=== PATIENT | female | born 1990 | race Caucasian/White ===

== ENCOUNTER 2021-11-04 18:13 | Inpatient (IN) | payer MEDICAID, OTHER ==
[~2021-11-04] VITALS: Ht 160 cm; Wt 59.4 kg
[2021-11-04] MEDS ORDERED: LORazepam 2 MG TABLET PO ONE (19:30)
[2021-11-04] MEDS ORDERED: QUEtiapine FUMARATE 100 MG TABLET PO ONE (19:30)
[2021-11-04 19:32] LABS: BASOPHILS % (AUTO) 0.8 % (0.0-2.0); EOSINOPHILS % (AUTO) 0 % (1.0-6.0); HEMATOCRIT 49.7 % (36-46); HEMOGLOBIN 17.4 g/dL (12.0-16.0); LYMPHOCYTES # (AUTO) 2.5 K/uL (1.0-4.8); LYMPHOCYTES % (AUTO) 25.8 % (22.0-44.0); MEAN CORPUSCULAR HEMOGLOBIN 33.2 pg (26.0-34.0); MEAN CORPUSCULAR HGB CONC 34.9 G/dL (31.0-37.0); MEAN CORPUSCULAR VOLUME 95 fL (80-100); MONOCYTES # (AUTO) 0.4 K/uL (0.1-1.0); MONOCYTES % (AUTO) 4.4 % (2.0-9.0); NEUTROPHILS # (AUTO) 6.7 K/uL (1.8-7.7); PLATELET COUNT (AUTO) 289 K/uL (150-450); RED BLOOD CELL COUNT(AUTO) 5.23 MIL/uL (4.00-5.20); RED CELL DISTRIBUTION WIDTH 13.5 % (11.5-14.5)
[2021-11-04 19:40] LABS: AMPHET/METH SCREEN,URINE NEGATIVE (NEGATIVE); ANION GAP 15 mmol/L (8-16); BARBITURATE SCREEN, URINE NEGATIVE (NEGATIVE); BENZODIAZEPINES SCREEN,URINE NEGATIVE (NEGATIVE); CALCIUM, TOTAL 8.7 mg/dL (8.8-10.5); CANNABINOID SCREEN,URINE POSITIVE (NEGATIVE); CARBON DIOXIDE 24 mmol/L (22-29); CHLORIDE 100 mmol/L (98-107); COCAINE SCREEN,URINE NEGATIVE (NEGATIVE); CREATININE 0.84 mg/dL (0.60-1.30); GLOMERULAR FILTR. RATE CALC > 60 mL/min (>60); GLUCOSE,RANDOM 117 mg/dL (70-110); METHADONE SCREEN, URINE NEGATIVE (NEGATIVE); OPIATE SCREEN,URINE NEGATIVE (NEGATIVE); POTASSIUM 4.1 mmol/L (3.5-5.1); SODIUM SERUM 139 mmol/L (136-145); UREA NITROGEN, BLOOD 13 mg/dL (7-18)
[2021-11-04 19:41] LABS: PHENCYCLIDINE SCREEN,URINE NEGATIVE (NEGATIVE)
[2021-11-04 19:44] LABS: COVID AG,FIA SOURCE NASAL SWAB
[2021-11-04 19:46] LABS: ALANINE AMINOTRANSFERASE 95 U/L (12-78); ALBUMIN 4.9 g/dL (3.4-5.0); ALKALINE PHOSPHATASE 92 U/L (46-116); ASPARTATE AMINOTRANSFERASE 106 U/L (15-37); BILIRUBIN,TOTAL 1.8 mg/dL (0.1-1.0)
[2021-11-04] MEDS ORDERED: ZOLPIDEM TARTRATE 10 MG TABLET PO PRN (20:15)
[2021-11-04] MEDS ORDERED: QUEtiapine FUMARATE 100 MG TABLET PO PRN (20:15)
[2021-11-04] MEDS ORDERED: LORazepam 2 MG TABLET PO PRN (20:15)
[2021-11-04 22:40] LABS: APPEARANCE,URINE CLEAR (CLEAR); BILIRUBIN,URINE NEGATIVE (NEGATIVE); GLUCOSE, URINE (UA) NEGATIVE (NEGATIVE); KETONES,URINE NEGATIVE (NEGATIVE); LEUKOCYTE ESTERASE ,URINE NEGATIVE (NEGATIVE); NITRATE,URINE NEGATIVE (NEGATIVE); OCCULT BLOOD,URINE SMALL (NEGATIVE); PROTEIN,URINE 30-70 mg/dL (NEGATIVE); SPECIFIC GRAVITIY, URINE 1.015 (1.003-1.030); UROBILINOGEN,URINE <=1.0 mg/dL (<=1.0)
[2021-11-04 22:45] LABS: BACTERIA,URINE Few /HPF (None Seen); RBC,URINE 0-2 /HPF (0-2); SQUAMOUS EPITHELIAL CELL,UR Moderate /LPF (None Seen); WBC,URINE 0-2 /HPF (0-5)
[2021-11-06 02:57] VITALS: BP 122/86
[2021-11-06 08:10] VITALS: BP 140/65
[2021-11-06] MEDS: ESCITALOPRAM OXALATE 10 MG TABLET PO SCH (10:15)
[2021-11-06] MEDS ORDERED: ONDANSETRON HCL 4 MG TABLET PO PRN (15:15)
[2021-11-06] MEDS ORDERED: MAGNESIUM HYDROXIDE SUSPENSION 30 ML UDCUP PO PRN (15:15)
[2021-11-06] MEDS ORDERED: PETROLATUM,WHITE 28 GM JELLY TP PRN (15:15)
[2021-11-06] MEDS ORDERED: IBUPROFEN 400 MG TABLET PO PRN (15:15)
[2021-11-06] MEDS ORDERED: LOPERAMIDE HCL 2 MG CAPSULE PO PRN (15:15)
[2021-11-06] MEDS ORDERED: MAG HYDROX/AL HYDROX/SIMETH ES 30 ML SUSPENSION UDCUP PO PRN (15:15)
[2021-11-06] MEDS ORDERED: GuaiFENesin/D-METHORPHAN [SUGAR-FREE] 200-20MG/10 ML SYRUP UDCUP PO PRN (15:15)
[2021-11-06] MEDS ORDERED: NICOTINE 14 MG/24 HOUR PATCH TD PRN (15:15)
[2021-11-06] MEDS ORDERED: DOCUSATE SODIUM 100 MG CAPSULE PO PRN (15:15)
[2021-11-06] MEDS ORDERED: ACETAMINOPHEN 325 MG TABLET PO PRN (15:15)
[2021-11-06] MEDS ORDERED: CloNIDine HCL 0.1 MG TABLET PO PRN (15:15)
[2021-11-06] MEDS ORDERED: ALBUTEROL SULFATE HFA 90 MCG/PUFF 8 GM INHALER IH PRN (15:15)
[2021-11-06 16:21] VITALS: BP 114/83
[2021-11-07 00:17] VITALS: BP 116/83
[2021-11-07 08:15] VITALS: BP 116/87
[2021-11-07] MEDS: ESCITALOPRAM OXALATE 10 MG TABLET PO SCH (08:44)
== END 2021-11-07 15:00 | disposition home or self-care (01) | DRG 751 ==
LOC: EMS 18:13 → B2S 11-06 00:27
PROVIDERS: ADMIT Psychiatry & Neurology Psychiatry; ATTEND Psychiatry & Neurology Psychiatry
DX: F33.2 Major depressive disorder, recurrent severe without psychotic features (principal); R45.851 Suicidal ideations; D75.1 Secondary polycythemia; F10.10 Alcohol abuse, uncomplicated; Y90.8 Blood alcohol level of 240 mg/100 ml or more; Z20.822 Contact with and (suspected) exposure to COVID-19; F12.99 Cannabis use, unspecified with unspecified cannabis-induced disorder; F41.9 Anxiety disorder, unspecified; R74.01 Elevation of levels of liver transaminase levels; R73.9 Hyperglycemia, unspecified
CPT/HCPCS: 80053; 81001; 85025; 99285; G0480

== ENCOUNTER 2023-09-02 18:11 | Inpatient (IN) | payer MEDICAID, OTHER ==
[~2023-09-02] VITALS: Ht 160 cm; Wt 59.2 kg
[2023-09-02 19:05] LABS: BASOPHILS % (AUTO) 0.3 % (0.0-2.0); EOSINOPHILS % (AUTO) 0.1 % (1.0-6.0); HEMATOCRIT 42.9 % (36-46); HEMOGLOBIN 14.9 g/dL (12.0-16.0); LYMPHOCYTES # (AUTO) 2.9 K/uL (1.0-4.8); LYMPHOCYTES % (AUTO) 37.2 % (22.0-44.0); MEAN CORPUSCULAR HEMOGLOBIN 32.6 pg (26.0-34.0); MEAN CORPUSCULAR HGB CONC 34.6 G/dL (31.0-37.0); MEAN CORPUSCULAR VOLUME 94 fL (80-100); MONOCYTES # (AUTO) 0.3 K/uL (0.1-1.0); MONOCYTES % (AUTO) 4.4 % (2.0-9.0); NEUTROPHILS # (AUTO) 4.5 K/uL (1.8-7.7); PLATELET COUNT (AUTO) 314 K/uL (150-450); RED BLOOD CELL COUNT(AUTO) 4.56 MIL/uL (4.00-5.20); RED CELL DISTRIBUTION WIDTH 12.8 % (11.5-14.5); WHITE BLOOD COUNT (AUTO) 7.7 K/uL (4.5-11.0)
[2023-09-02 19:13] LABS: ANION GAP 11 mmol/L (8-16); CALCIUM, TOTAL 9.8 mg/dL (8.8-10.5); CARBON DIOXIDE 28 mmol/L (22-29); CHLORIDE 103 mmol/L (98-107); CREATININE 0.77 mg/dL (0.60-1.30); GLOMERULAR FILTR. RATE CALC > 60 mL/min (>60); GLUCOSE,RANDOM 122 mg/dL (70-110); POTASSIUM 3.8 mmol/L (3.5-5.1); SODIUM SERUM 142 mmol/L (136-145); UREA NITROGEN, BLOOD 10 mg/dL (7-18)
[2023-09-02 19:19] LABS: ALANINE AMINOTRANSFERASE 21 U/L (12-78); ALBUMIN 4.3 g/dL (3.4-5.0); ALKALINE PHOSPHATASE 63 U/L (46-116); ASPARTATE AMINOTRANSFERASE 23 U/L (15-37); BILIRUBIN,TOTAL 1.9 mg/dL (0.1-1.0); TOTAL PROTEIN, SERUM 8.1 g/dL (6.4-8.2)
[2023-09-02 19:22] LABS: ALCOHOL, BLOOD (SERUM) 266 mg/dL (0-10)
[2023-09-02 19:41] LABS: COVID AG,FIA SOURCE NASAL SWAB
[2023-09-02 19:51] LABS: ALCOHOL, URINE DRUG SCREEN POSITIVE (NEGATIVE); AMPHET/METH SCREEN,URINE NEGATIVE (NEGATIVE); BARBITURATE SCREEN, URINE NEGATIVE (NEGATIVE); BENZODIAZEPINES SCREEN,URINE NEGATIVE (NEGATIVE); CANNABINOID SCREEN,URINE POSITIVE (NEGATIVE); COCAINE SCREEN,URINE NEGATIVE (NEGATIVE); METHADONE SCREEN, URINE NEGATIVE (NEGATIVE); OPIATE SCREEN,URINE NEGATIVE (NEGATIVE); PHENCYCLIDINE SCREEN,URINE NEGATIVE (NEGATIVE)
[2023-09-02 20:40] LABS: SARS-COV2 (COVID) ANTIGEN,FIA Negative (Negative)
[2023-09-02] MEDS ORDERED: PROMETHAZINE HCL 25 MG TABLET PO PRN (22:15)
[2023-09-02] MEDS ORDERED: QUEtiapine FUMARATE 100 MG TABLET PO PRN (22:15)
[2023-09-02] MEDS ORDERED: LOPERAMIDE HCL 2 MG CAPSULE PO PRN ×2 (22:15)
[2023-09-02] MEDS ORDERED: GuaiFENesin/D-METHORPHAN [SUGAR-FREE] 200-20MG/10 ML SYRUP UDCUP PO PRN (22:15)
[2023-09-02] MEDS ORDERED: HydrOXYzine PAMOATE 50 MG CAPSULE PO PRN (22:15)
[2023-09-02] MEDS ORDERED: MAGNESIUM HYDROXIDE SUSPENSION 30 ML UDCUP PO PRN (22:15)
[2023-09-02] MEDS ORDERED: MAG HYDROX/ALUMINUM HYD/SIMETH ES 30 ML SUSPENSION UDCUP PO PRN (22:15)
[2023-09-02] MEDS ORDERED: TUBERCULIN, PURIFIED PROTEIN DERIVATIVE 5 TU/0.1 ML SYRINGE ID ONE (22:15)
[2023-09-02] MEDS ORDERED: ACETAMINOPHEN 325 MG TABLET PO PRN (22:15)
[2023-09-02] MEDS ORDERED: ZOLPIDEM TARTRATE 10 MG TABLET PO PRN (22:15)
[2023-09-03] VITALS (10 sets, daily range): BP systolic 110–131; BP diastolic 72–87; PULSE 62–107; RESP 16–19; TEMP 97.5–98.1; O2SAT 97–99
[2023-09-03] MEDS: INFLUENZA VIRUS VACCINE QVS 2023-24 (6MO+)/PF 60 MCG/0.5 ML SYRINGE IM. ONE (02:00)
[2023-09-03] MEDS: DIAZEPAM 10 MG TABLET PO PRN (02:24)
[2023-09-03] MEDS ORDERED: DIAZEPAM 10 MG TABLET PO PRN (07:00)
[2023-09-03] MEDS: DIAZEPAM 10 MG TABLET PO SCH (08:57)
[2023-09-03] MEDS: FOLIC ACID 1 MG TABLET PO SCH (08:57)
[2023-09-03] MEDS: MULTIVITAMINS WITH MINERALS, THERAPEUTIC TABLET PO SCH (08:57)
[2023-09-03] MEDS: OMEGA-3/DHA/EPA/FISH OIL 1,000 MG CAPSULE PO SCH (08:57)
[2023-09-03] MEDS: THIAMINE 100 MG TABLET PO SCH (08:57)
[2023-09-03] MEDS: NALTREXONE HCL 50 MG TABLET PO SCH (08:58)
[2023-09-03 08:59] LABS: HEMOGLOBIN A1C 5.3 % (3.8-5.6)
[2023-09-03 09:32] LABS: CHOL/HDL RATIO 2.4 (3.9-5.7); FREE T4 (FREE THYROXINE) 1.06 ng/dL (0.76-1.46); THYROID STIMULATING HORMONE 1.8 uIU/mL (0.36-3.74)
[2023-09-03] MEDS: CYANOCOBALAMIN 1,000 MCG/ML VIAL IM ONE (10:10)
[2023-09-03] MEDS ORDERED: LORazepam 2 MG TABLET PO PRN (16:30)
[2023-09-03] MEDS: MIRTAZAPINE 15 MG TABLET PO SCH (20:27)
[2023-09-03] MEDS: MELATONIN 5 MG TABLET PO SCH (20:27)
[2023-09-03] MEDS ORDERED: MIRTAZAPINE 15 MG TABLET PO SCH (21:00)
[2023-09-04] VITALS (7 sets, daily range): BP systolic 116–130; BP diastolic 76–86; PULSE 64–91; RESP 17–18; TEMP 97.1–97.7; O2SAT 98–100
[2023-09-04] MEDS ORDERED: MELA5TAB40 PO (20:28)
[2023-09-04] MEDS ORDERED: NALT50TA33 PO (20:28)
[2023-09-04] MEDS ORDERED: MIRT-89 PO (20:28)
[2023-09-04] MEDS ORDERED: OMEG-135 PO (20:28)
[2023-09-05] MEDS ORDERED: DIAZEPAM 5 MG TABLET PO PRN (07:00)
[2023-09-05] MEDS ORDERED: DIAZEPAM 5 MG TABLET PO SCH (09:00)
[2023-09-05 09:30] VITALS: BP 122/90; PULSE 97; RESP 17; TEMP 98; O2SAT 100
[2023-09-06] MEDS ORDERED: DIAZEPAM 5 MG TABLET PO PRN (07:00)
== END 2023-09-05 10:00 | disposition home or self-care (01) | DRG 751 ==
LOC: EMS 18:16 → B2S 09-03 00:23
PROVIDERS: ADMIT Psychiatry & Neurology Psychiatry; ATTEND Psychiatry & Neurology Psychiatry
PROC: GZHZZZZ Group Psychotherapy (ICD-10-PCS; principal; 2023-09-03)
PROC: GZ51ZZZ Individual Psychotherapy, Behavioral (ICD-10-PCS; 2023-09-03)
DX: F33.2 Major depressive disorder, recurrent severe without psychotic features (principal); R45.851 Suicidal ideations; F43.10 Post-traumatic stress disorder, unspecified; Z20.822 Contact with and (suspected) exposure to COVID-19; F17.210 Nicotine dependence, cigarettes, uncomplicated; D75.1 Secondary polycythemia; R74.01 Elevation of levels of liver transaminase levels; F10.10 Alcohol abuse, uncomplicated
CPT/HCPCS: 80053; 80061; 80307; 83036; 84439; 84443; 84703; 85025; 86592; 99285; G0480; J3420; Q9967